=== PATIENT | female | born 2000 ===

== ENCOUNTER 2020-07-11 23:14 | Outpatient (CLI) | payer SELFPAY ==
--- NOTE | 2020-07-11 19:14 | Event Note ---
ED Screening Note Date of service: 07/11/20 Time: 19:12 ED Screening Note: 19-year-old female presents to the emergency room for abdominal pain x3 days. Patient reports that she is approximately 6 months last menstrual period was 01/16/2020. 1. Denies any vaginal bleeding no vaginal discharge pain is around her umbilicus. She reports she is followed by [place]. This initial assessment/diagnostic orders/clinical plan/treatment(s) is/are subject to change based on patients health status, clinical progression and re- assessment by fellow clinical providers in the ED. Further treatment and workup at subsequent clinical providers discretion. Patient/guardian urged not to elope from the ED as their condition may be serious if not clinically assessed and managed. Initial orders include:
[2020-07-11 19:29] LABS: Bilirubin,Urine NEG (Negative); Blood,Urine NEG (Negative); Color,Urine Yellow (Yellow); Mucus,Urine FEW /HPF; Protein,Urine <15 mg/dL mg/dL (Negative); RBC,Urine < 1.0 /HPF (0.0-6.0); Urobilinogen,Urine < 2.0 mg/dL (<2.0)
[2020-07-12 00:02] VITALS: BP 121/58
[2020-07-12] MEDS ORDERED: LACTATED RINGERS 1,000 ML IV ONE (00:12)
[2020-07-12 01:46] LABS: Bacteria,Urine 1+ /HPF (Negative); Bilirubin,Urine NEG (Negative); Blood,Urine NEG (Negative); Color,Urine Yellow (Yellow); Mucus,Urine FEW /HPF; Protein,Urine <15 mg/dL mg/dL (Negative); Urobilinogen,Urine < 2.0 mg/dL (<2.0)
[2020-07-12] MEDS ORDERED: ceFAZolin/NS 1 GM/50 ML 1 GM/50 ML BAG IV ONE ×2 (02:27→03:00)
[2020-07-12] MEDS ORDERED: TERBUTALINE 1 MG/1 ML INJ SUB-Q ONE (02:35)
== END 2020-07-12 04:00 | disposition home or self-care (01) ==
LOC: TRG 23:14 → EDSTATUS 23:17 → APU 23:21 → TRG 07-12 04:00
PROVIDERS: ATTEND Obstetrics & Gynecology
DX: O26.892 Other specified pregnancy related conditions, second trimester (principal); R10.9 Unspecified abdominal pain; Z3A.25 25 weeks gestation of pregnancy
CPT/HCPCS: 36415; 59025; 81001; 82731; 96361; 96365; 96372; J0690; J3105; J7120; 96360